=== PATIENT | female | born 1980 | race African-American/Black ===

== ENCOUNTER 2017-01-04 13:29 | Emergency (ER) | payer OTHER ==
[~2017-01-04] VITALS: Wt 70.0 kg
[~2017-01-04 13:29] MED LIST: ACET1TAB40 PO; ACET500T98 PO; AMO500 PO; IBUP-1542 PO; IBUP200C PO; PRED20TA PO; PRED50TA PO
[2017-01-04 14:16] LABS: ADD SCAN DIFF NO
[2017-01-04 14:17] LABS: BASOPHILS % 0.3 % (0.0-2.0); EOSINOPHILS # 0.2 10^3/ul (0.0-0.5); EOSINOPHILS % 2.5 % (0.0-7.0); HEMATOCRIT 36.9 % (37.0-47.0); HEMOGLOBIN 12.3 g/dl (12.0-16.0); LYMPHOCYTES # 2.6 10^3/ul (0.8-2.9); LYMPHOCYTES % 40.7 % (15.0-51.0); MEAN CORPUSCULAR HEMOGLOBIN 29.7 pg (29.0-33.0); MEAN CORPUSCULAR HGB CONC 33.3 g/dl (32.0-37.0); MEAN CORPUSCULAR VOLUME 89.1 fl (82.0-101.0); MEAN PLATELET VOLUME 9.9 fl (7.4-10.4); MONOCYTE # 0.6 10^3/ul (0.3-0.9); MONOCYTES % 8.5 % (0.0-11.0); NEUTROPHIL # 3.1 10^3/ul (1.6-7.5); NEUTROPHILS % 47.8 % (39.0-77.0); PLATELET COUNT 304 10^3/UL (140-415); RED BLOOD COUNT 4.14 10^6/ul (4.20-5.40); RED CELL DISTRIBUTION WIDTH 11.8 % (11.5-14.5); WHITE BLOOD COUNT 6.5 10^3/ul (4.8-10.8)
[2017-01-04 14:26] LABS: ADD UMIC YES; URINE BILIRUBIN (Dip) NEGATIVE (NEGATIVE); URINE BLOOD (Dip) 3+ (NEGATIVE); URINE COLOR LT. YELLOW (YELLOW); URINE GLUCOSE (Dip) NEGATIVE (NEGATIVE); URINE KETONES (Dip) NEGATIVE (NEGATIVE); URINE LEUKOCYTE ESTERASE (Dip) NEGATIVE (NEGATIVE); URINE NITRITE (Dip) NEGATIVE (NEGATIVE); URINE TOTAL PROTEIN (Dip) NEGATIVE (NEGATIVE); URINE UROBILINOGEN (Dip) 0.2 E.U./dL (0.1-1.0)
[2017-01-04] MEDS ORDERED: OLANZAPINE (ODT) 5 MG TAB ODT ONE (14:30)
--- NOTE | 2017-01-04 14:32 | PSY ---
Date/Time of Note Date/Time of Note DATE: 01/04/17 TIME: 14:24 Psychiatric Subjective Eval Consent Pt consented to telemedicine: Yes Subjective Evaluation Patient location: emergency Chief Complaint: auditory halluciantions for the past few wks getting worse. no si or hi Reason for consult: hallucinations telling pt she i s going to History of present illness d/w Dr Borja. Pt is 36 yo single employed [employer] presenting to ED c/o hearing voices. Pt states to me, she has been hearing them for a few weeks. She describes them as non command but derogatory. She states she has been depressed and anxious, with poor sleep, feeling overwhelmed and sad, anxious, since her son was arrested and incarcerated for theft. Pt says she does not hear voices since she came to ED. She denies paranoia, she denies Vh. She states, she wants medications for panic and anxiety. She feels safe about going home. She denies any SI or HI. Past psychiatric history none; pt is in therapy, started recently; denies ever been rx psychotropic meds Hospitalization: no Family History denies Medical history Problems Medical Problems: (1) Left ear pain Status: Acute (2) Lymphadenitis Status: Acute (3) Otitis externa Status: Acute (4) Otitis externa due to herpes zoster Status: Acute (5) Otitis media Status: Acute (6) Pain, dental Status: Acute (7) Patient left before triage assessment Status: Acute (8) Sore throat Status: Acute (9) URI, acute Status: Acute Allergies: Coded Allergies: No Known Allergy (Unverified , 12/26/15) Substance Abuse Substance use: No known substance abuse Social History Marital status: single Level of education: HS DPA/Conservatorship: No 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 [employer] Psychiatric Objective Eval Physical Examination: Sleep: Insomnia Appetite: Decreased Energy: Decreased Interest: Decreased Mental Status Examination: Appearance: Groomed Eye Contact: Good Psychomotor Activity: Normal Behavior: Cooperative Speech: Clear AFFECT: Constricted Mood: Depressed Though Process: Linear Thought Content: Hallucinations Suicidal: No Homicidal: No On 72 hour hold: No Orientation: x4 Cognition: Alert Insight: Impared Judgement: Intact Attention Span: Intact Assessment and Plan Assessment/Diagnosis Blackwood I: Major Depressive disorder, single episode, with psychosis Blackwood II: defered Blackwood III: as per record Blackwood IV: severe Blackwood V: gaf 50 Recommendation/Plan Medication Management please rx Lexapro 10 mg po qhs #30, risperidone 0.5 mg poqhs and 0.25 mg po prn q 12 for voices# 60; riskes , benefits d/w the pt Psychotherapy please refer to outpt Follow-up/Disposition no DTS, DTO, GD; please refer to outpt mental health clinic CRISTEL DOLAN MD January 04, 2017 14:32
[2017-01-04 14:37] LABS: BACTERIA,URINE FEW; URINE RBCS 25-50 /HPF (0)
[2017-01-04 14:38] LABS: ALBUMIN 4.1 g/dl (3.3-4.9)
[2017-01-04 14:39] LABS: CHLORIDE 104 mmol/L (97-110); POTASSIUM 3.6 mmol/L (3.5-5.1); SODIUM 139 mmol/L (135-144)
[2017-01-04 14:41] LABS: ALANINE AMINOTRANSFERASE 17 IU/L (13-69); ALBUMIN/GLOBULIN RATIO 1.07; ALKALINE PHOSPHATASE 73 IU/L (42-121); ANION GAP 14 (8-16); ASPARTATE AMINO TRANSFERASE 19 IU/L (15-46); BILIRUBIN,INDIRECT 0.1 mg/dl (0-1.1); BILIRUBIN,TOTAL 0.1 mg/dl (0.2-1.3); BLOOD UREA NITROGEN 10 mg/dl (7-20); CARBON DIOXIDE 25 mmol/L (21-31); CREATININE 0.67 mg/dl (0.44-1.00); TOTAL PROTEIN 7.9 g/dl (6.1-8.1)
[2017-01-04 14:42] LABS: ACETAMINOPHEN < 10.0 ug/ml (10.0-30.0); CALCIUM 8.8 mg/dl (8.4-10.2); GLUCOSE 96 mg/dl (70-220)
[2017-01-04 14:42] LABS: BARBITURATES Negative (NEGATIVE); BENZODIAZEPINES Negative (NEGATIVE); CANNABINOIDS Negative (NEGATIVE)
[2017-01-04 14:43] LABS: COCAINE Negative (NEGATIVE); OPIATES Negative (NEGATIVE)
[2017-01-04 14:43] LABS: SALICYLATE < 1.0 mg/dl (5.0-30.0)
[2017-01-04] MEDS ORDERED: ESCI10TA PO (14:50)
[2017-01-04] MEDS ORDERED: RISP0.5T3 PO (14:50)
--- NOTE | 2017-01-04 15:44 | ERD ---
ER Documentation Chief Complaint Date/Time DATE: 01/04/17 TIME: 15:42 Chief Complaint auditory halluciantions for the past few wks getting worse. no si or hi HPI Patient is a 36-year-old female with anxiety and depression who presents with hearing voices. She says the voices are saying "I might ". She says that she hears voices all the time. She saw her mental health counselor on January 01 and the counselor recommended a evaluation. The patient denies homicidal or suicidal ideation. Upon review of old medical records the patient has had multiple visits to the ER for various complaints. She does not currently have any primary doctor. ROS All systems reviewed and are negative except as per history of present illness. Medications Home Meds Active Scripts Risperidone* (Risperidone*) 0.5 Mg Tablet, 0.5 MG PO QHS, #30 TAB Prov:GEOFFREY GALLO MD 01/04/17 Escitalopram Oxalate* (Lexapro*) 10 Mg Tablet, 10 MG PO QHS, #30 TAB Prov:GEOFFREY GALLO MD 01/04/17 Acetaminophen-Codeine* (Acetaminophen-Cod #3*) 300-30 Mg Tab, 1 TAB PO Q4H Y for PAIN, #14 TAB Prov:SOO BERRY MD 12/26/15 Ibuprofen* (Motrin*) 600 Mg Tab, 600 MG PO Q6, #20 TAB Prov:SOO BERRY MD 12/26/15 Amoxicillin* (Amoxicillin*) 500 Mg Cap, 500 MG PO TID for 10 Days, CAP Prov:SOO BERRY MD 12/26/15 Ibuprofen* (Ibuprofen*) 200 Mg Capsule, 200 MG PO Q6, #30 CAP 0 Refills Prov:CHAGO BREWSTER PA-C 08/30/15 Acetaminophen (Tylenol) 500 Mg Tab, 500 MG PO Q6, #30 TAB 0 Refills Prov:CHAGO BREWSTER PA-C 08/30/15 Amoxicillin* (Amoxicillin*) 500 Mg Cap, 500 MG PO TID, #21 CAP 0 Refills Prov:CHAGO BREWSTER PA-C 08/30/15 Prednisone* (Prednisone*) 50 Mg Tablet, 50 MG PO DAILY, #5 TAB Prov:EROS JOSEPH PA-C 05/30/15 Amoxicillin* (Amoxicillin*) 500 Mg Cap, 500 MG PO BID for 7 Days, CAP Prov:EROS JOSEPH PA-C 05/30/15 Ibuprofen* (Motrin*) 600 Mg Tab, 600 MG PO Q6, #14 TAB Prov:SOO BERRY MD 02/22/15 Prednisone* (Prednisone*) 20 Mg Tab, 40 MG PO DAILY for 3 Days, TAB start 02/23 Prov:SOO BERRY MD 02/22/15 Amoxicillin* (Amoxicillin*) 500 Mg Cap, 500 MG PO TID for 7 Days, CAP Prov:SOO BERRY MD 02/22/15 Allergies Allergies: Coded Allergies: No Known Allergy (Unverified , 12/26/15) PMhx/Soc History of Surgery: Yes (C SECTION 1997) Anesthesia Reaction: No Hx Neurological Disorder: No Hx Respiratory Disorders: No Hx Cardiac Disorders: No Hx Psychiatric Problems: Yes Hx Miscellaneous Medical Probl: No Hx Alcohol Use: No Hx Substance Use: No Hx Tobacco Use: No Smoking Status: Never smoker FmHx Family History: No diabetes Physical Exam Vitals Vital Signs Date Time Temp Pulse Resp B/P Pulse Ox O2 Delivery O2 Flow Rate FiO2 01/04/17 13:31 98.7 84 18 146/90 98 Physical Exam Const: No acute distress Head: Atraumatic Eyes: Normal Conjunctiva ENT: Normal External Ears, Nose and Mouth. Neck: Full range of motion..~ No meningismus. Resp: Clear to auscultation bilaterally Cardio: Regular rate and rhythm, no murmurs Abd: Soft, non tender, non distended. Normal bowel sounds Skin: No petechiae or rashes Back: No midline or flank tenderness Ext: No cyanosis, or edema Neur: Awake and alert Psych: Able to answer questions appropriately, admits to hearing voices, no suicidal or homicidal ideation Result Diagram: 01/04/17 1410 01/04/17 1410 Results 24 hrs Laboratory Tests Test 01/04/17 14:10 01/04/17 14:15 White Blood Count 6.510^3/ul Red Blood Count 4.1410^6/ul Hemoglobin 12.3g/dl Hematocrit 36.9% Mean Corpuscular Volume 89.1fl Mean Corpuscular Hemoglobin 29.7pg Mean Corpuscular Hemoglobin Concent 33.3g/dl Red Cell Distribution Width 11.8% Platelet Count 68114^3/UL Mean Platelet Volume 9.9fl Neutrophils % 47.8% Lymphocytes % 40.7% Monocytes % 8.5% Eosinophils % 2.5% Basophils % 0.3% Nucleated Red Blood Cells % 0.0/100WBC Neutrophils # 3.110^3/ul Lymphocytes # 2.610^3/ul Monocytes # 0.610^3/ul Eosinophils # 0.210^3/ul Basophils # 0.010^3/ul Nucleated Red Blood Cells # 0.010^3/ul Sodium Level 139mmol/L Potassium Level 3.6mmol/L Chloride Level 104mmol/L Carbon Dioxide Level 25mmol/L Anion Gap 14 Blood Urea Nitrogen 10mg/dl Creatinine 0.67mg/dl Glucose Level 96mg/dl Calcium Level 8.8mg/dl Total Bilirubin 0.1mg/dl Direct Bilirubin 0.00mg/dl Indirect Bilirubin 0.1mg/dl Aspartate Amino Transf (AST/SGOT) 19IU/L Alanine Aminotransferase (ALT/SGPT) 17IU/L Alkaline Phosphatase 73IU/L Total Protein 7.9g/dl Albumin 4.1g/dl Globulin 3.80g/dl Albumin/Globulin Ratio 1.07 Salicylates Level < 1.0mg/dl Acetaminophen Level < 10.0ug/ml Ethyl Alcohol Level Pending Urine Color LT. YELLOW Urine Clarity CLEAR Urine pH 6.0 Urine Specific Dent 1.020 Urine Ketones NEGATIVE Urine Nitrite NEGATIVE Urine Bilirubin NEGATIVE Urine Urobilinogen 0.2 E.U./dL Urine Leukocyte Esterase NEGATIVE Urine Microscopic RBC 25-50/HPF Urine Microscopic WBC 2-5/HPF Urine Epithelial Cells FEW Urine Bacteria FEW Urine Hemoglobin 3+ Urine Glucose NEGATIVE% Urine Total Protein NEGATIVE Urine Opiates Screen Negative Urine Barbiturates Negative Urine Amphetamines Screen Negative Urine Benzodiazepines Screen Negative Urine Cocaine Screen Negative Urine Cannabinoids Negative Current Medications Medications (Trade) Dose Ordered Sig/Chary Route PRN Reason Start Time Stop Time Status Last Admin Dose Admin Olanzapine (Zyprexa Zydis) 5 mg ONCE ONCE ODT 01/04/17 14:30 01/04/17 14:31 DC Procedures/MDM Patient is a 36-year-old female who presents with acute psychosis. She was seen by psychiatry and Dr. Mcbride does not feel that there is any need at this point for a 5150 hold. I agree. The patient's laboratory studies are basically normal. The patient eloped prior to receiving full discharge instructions. Dr. Mcbride recommended Lexapro and risperidone which I did prescribe but the patient had already eloped. She can return for any worsening symptoms. The patient was given Zyprexa in the emergency department prior to elopement. Departure Diagnosis: Primary Impression: Psychosis Psychosis type: unspecified psychosis type Qualified Code: F29 - Psychosis, unspecified psychosis type Condition: Fair Patient Instructions: Psychosis Referrals: Psychiatrist Additional Instructions: Call your primary care doctor TOMORROW for an appointment during the next 1-2 days.See the doctor sooner or return here if your condition worsens before your appointment time. GEOFFREY GALLO MD January 04, 2017 15:44
[2017-01-04 16:32] LABS: ETHANOL < 10.0 mg/dl
== END 2017-01-04 14:55 | disposition left against medical advice (07) ==
LOC: E/R 13:29
DX: F29 Unspecified psychosis not due to a substance or known physiological condition (principal); R40.2142 Coma scale, eyes open, spontaneous, at arrival to emergency department; R40.2252 Coma scale, best verbal response, oriented, at arrival to emergency department; R40.2362 Coma scale, best motor response, obeys commands, at arrival to emergency department
CPT/HCPCS: 80053; 80306; 80307; 81001; 81003; 85025; Z7610; 99284

== ENCOUNTER 2018-05-30 02:03 | Emergency (ER) | END 2018-05-30 05:44 | disposition home or self-care (01) ==